=== PATIENT | female | born 2000 | race Caucasian/White ===

== ENCOUNTER → 2019-11-04 | Outpatient (CLI) | payer OTHER ==
--- NOTE | 2019-11-04 10:25 | REP ---
Two-view chest: 11/04/2019. Indication: Cough. Comparison: None. Findings: The lungs are clear. There is no pleural effusion or pneumothorax. The cardiomediastinal silhouette is unremarkable. Impression: No acute cardiopulmonary process. Electronically Signed by Arden Agarwal DO 11/04/2019 10:16 A
== END ==
LOC: M LRY 09:51
PROVIDERS: ATTEND Physician Assistant
DX: R05 Cough (principal)
CPT/HCPCS: 71046; G0463

== ENCOUNTER → 2020-03-23 | Outpatient (CLI) | payer OTHER ==
--- NOTE | 2020-03-23 15:36 | REP ---
REASON FOR EXAM: Pain after trauma yesterday. FINDINGS: The joint spaces are symmetric and relatively well maintained. There is no evidence of acute fracture or destructive osseous lesion. IMPRESSION: Negative. Electronically Signed by Joseluis Simms DO 03/23/2020 04:09 P
== END ==
LOC: M LRY 13:13
PROVIDERS: ATTEND Nurse Practitioner Family
DX: S69.91XA Unspecified injury of right wrist, hand and finger(s), initial encounter (principal); X58.XXXA Exposure to other specified factors, initial encounter; Y92.9 Unspecified place or not applicable

== ENCOUNTER → 2020-04-15 | Outpatient (REF) | payer OTHER | LOC: M SFHCLERA 09:54 | PROVIDERS: ATTEND Physician Assistant | DX: R50.9 Fever, unspecified (principal) ==

== ENCOUNTER → 2020-04-18 | Outpatient (REF) | payer OTHER ==
[2020-04-18 13:22] LABS: HEPATITIS A ANTIBODY IGM NEGATIVE (NEGATIVE); HEPATITIS B CORE ANTIBODY IGM NEGATIVE (NEGATIVE); HEPATITIS B SURFACE ANTIGEN NEGATIVE (NEGATIVE); HEPATITIS C VIRUS ABY INDEX 0.3 INDEX (<0.8); HIV 1&2 SCREEN CENTAUR NEGATIVE (NEGATIVE)
[2020-04-18 14:06] LABS: CHLAMYDIA DNA AMPLIFICATION NEGATIVE (NEGATIVE); GC DNA AMPLIFICATION NEGATIVE (NEGATIVE)
== END ==
LOC: M SFHCLERA 10:01
PROVIDERS: ATTEND Nurse Practitioner Family
DX: Z11.3 Encounter for screening for infections with a predominantly sexual mode of transmission (principal)

== ENCOUNTER 2020-09-01 11:41 | Emergency (ER) | payer OTHER ==
[~2020-09-01] VITALS: Ht 160 cm; Wt 85.8 kg
[2020-09-01] MEDS ORDERED: prenatal PO (11:53)
[2020-09-01] MEDS ORDERED: ZYRTTAB8 PO (11:53)
[2020-09-01] MEDS ORDERED: VENTAER INH (11:53)
[2020-09-01] MEDS ORDERED: ACETAMINOPHEN 325 MG TAB As Ordered ONE (12:17)
[2020-09-01 12:22] LABS: AMORPHOUS SEDIMENT SMALL (NEGATIVE); APPEARANCE, URINE HAZY (CLEAR); BACTERIA, URINE AUTO 1+ (NEGATIVE); BILIRUBIN, URINE AUTO NEGATIVE (NEGATIVE); BLOOD, URINE BLOOD NEGATIVE (NEGATIVE); COLOR, URINE YELLOW (YELLOW); GLUCOSE, URINE (UA) AUTO NEGATIVE (NEGATIVE); KETONE, URINE AUTO 1+ mg/dL (NEGATIVE); LEUKOCYTE ESTERASE, URINE AUTO NEGATIVE (NEGATIVE); MUCUS, URINE SMALL (NEGATIVE); NITRITE, URINE AUTO NEGATIVE (NEGATIVE); PROTEIN, URINE AUTO 2+ mg/dL (NEGATIVE); RBC, URINE AUTO 2 /HPF (0-3); SPECIFIC GRAVITY URINE AUTO 1.025 (1.002-1.035); SQUAMOUS EPITHELIAL CELL UR AU 5 /HPF (0-6); WBC, URINE AUTO 1 /HPF (0-3)
[2020-09-01] MEDS ORDERED: ACETAMINOPHEN 325 MG TAB PO ONE (12:30)
[2020-09-01 13:35] VITALS: BP 122/71
--- NOTE | 2020-09-02 08:37 | REP ---
INDICATION: fal kat shower, pelvic cramping COMPARISON: None. TECHNIQUE: Transabdominal and transvaginal 1st trimester obstetrical ultrasound with color Doppler evaluation as necessary. FINDINGS: Anteverted uterus measures 7.5 x 3.8 x 4.5 cm. No significant decidual reaction is appreciated and no intrauterine is identified Bilateral ovaries are normal in appearance and vascularity without evidence for torsion. Right ovary measures 2.4 x 1.7 x 1.9 cm (RI 0.63). Left ovary measures 4.5 x 2.7 x 3.3 cm (RI 0.47) and includes 2.5 cm cyst. No pelvic fluid or adnexal mass lesion identified. IMPRESSION: 1. No evidence for intrauterine . 2. No pelvic free fluid or adnexal mass lesion. Differential diagnosis includes early , recent spontaneous , and much less likely ectopic . Correlation with serial HCG levels recommended. <Electronically signed by Wilver Randhawa > 09/02/20 [id number]
== END 2020-09-01 13:56 | disposition home or self-care (01) ==
LOC: M ED 11:41
DX: O9A.211 Injury, poisoning and certain other consequences of external causes complicating pregnancy, first trimester (principal); R10.2 Pelvic and perineal pain; O36.80X0 Pregnancy with inconclusive fetal viability, not applicable or unspecified; W18.2XXA Fall in (into) shower or empty bathtub, initial encounter; Y92.009 Unspecified place in unspecified non-institutional (private) residence as the place of occurrence of the external cause; Y93.9 Activity, unspecified; Y99.9 Unspecified external cause status; Z3A.00 Weeks of gestation of pregnancy not specified

== ENCOUNTER 2020-09-17 21:21 | Emergency (ER) | payer OTHER ==
[~2020-09-17] VITALS: Ht 160 cm; Wt 85.7 kg
[~2020-09-17 21:21] MED LIST: VENTAER INH; ZYRTTAB8 PO; prenatal PO
[2020-09-17] MEDS ORDERED: UNIS25TA3 PO (21:29)
[2020-09-17] MEDS ORDERED: PYRI50TA8 PO (21:32)
[2020-09-17] MEDS ORDERED: METOCLOPRAMIDE 10 MG TAB PO ONE (21:45)
[2020-09-17] MEDS ORDERED: REGL10TA6 PO (22:28)
[2020-09-17 22:34] VITALS: BP 133/80
== END 2020-09-17 22:36 | disposition home or self-care (01) ==
LOC: M ED 21:21
DX: O21.0 Mild hyperemesis gravidarum (principal); Z3A.00 Weeks of gestation of pregnancy not specified; O99.511 Diseases of the respiratory system complicating pregnancy, first trimester; J45.909 Unspecified asthma, uncomplicated

== ENCOUNTER 2020-09-29 07:37 | Emergency (ER) | payer OTHER ==
[~2020-09-29] VITALS: Ht 160 cm; Wt 85.4 kg
[~2020-09-29 07:37] MED LIST changes: +PYRI50TA8 PO; +REGL10TA6 PO; +UNIS25TA3 PO
[2020-09-29] MEDS ORDERED: NS 1,000 ML IV ONE (08:15)
[2020-09-29] MEDS ORDERED: ONDANSETRON 4MG/2ML VIAL IV ONE (08:15)
[2020-09-29 08:28] LABS: BASO # 0.1 10^3/uL (0.0-0.2); BASO % 0.5 % (0.0-1.0); EOS # 0.2 10^3/uL (0.0-0.5); HEMATOCRIT 37.8 % (36.0-47.0); HEMOGLOBIN 12.6 g/dl (12.0-15.5); LYMPH # 2.2 10^3/uL (1.5-5.0); LYMPH % 20.4 % (24.0-44.0); MEAN CORPUSCULAR HGB CONC 33.3 g/dl (32.0-36.5); MEAN CORPUSCULAR VOLUME 86.9 fl (80.0-96.0); MONO # 0.4 10^3/uL (0.0-0.8); MONO % 4.1 % (0.0-5.0); NEUTROPHILS # 7.8 10^3/uL (1.5-8.5); NEUTROPHILS % 72.6 % (36.0-66.0); PLATELET COUNT, AUTOMATED 299 10^3/uL (150-450); RED BLOOD COUNT 4.35 10^6/uL (4.00-5.40); WHITE BLOOD COUNT 10.7 10^3/uL (4.0-10.0)
--- NOTE | 2020-09-29 08:56 | REP ---
INDICATION: lower abd ttp, n/v, 8 weeks. COMPARISON: 09/01/2020. FINDINGS: Once again, note is made of an intrauterine gestational sac. Within the gestational sac there is echogenic material consistent with a pole the mean crown-rump length measurement of which is consistent with an 8 week 4 day gestational age. Based on that the LEILANI is 05/07/2021. There is no chorionic or subchorionic abnormality. There is a probable 2.4 cm sized corpus luteum cyst on the left. Doppler interrogation of the heart is a heart rate of 169 beats per minute. IMPRESSION: Early OB ultrasound as described above. <Electronically signed by Joseluis Simms > 09/29/20 [id number]
[2020-09-29 09:03] LABS: ALBUMIN 3.8 GM/DL (3.2-5.2); ALT/SGPT 23 U/L (12-78); BILIRUBIN,DIRECT < 0.1 MG/DL (0.0-0.2); BILIRUBIN,TOTAL 0.2 MG/DL (0.2-1.0); BLOOD UREA NITROGEN 8 MG/DL (7-18); CALCIUM LEVEL 9.1 MG/DL (8.5-10.1); CARBON DIOXIDE LEVEL 21 MEQ/L (21-32); CHLORIDE LEVEL 106 MEQ/L (98-107); CREATININE FOR GFR 0.58 MG/DL (0.55-1.30); GLOMERULAR FILTRATION RATE > 60.0 (>60); GLUCOSE, FASTING 86 MG/DL (70-100); HCG, SERUM QUANTITATIVE 65014 MIU/ML; LIPASE 65 U/L (73-393); POTASSIUM SERUM 3.8 MEQ/L (3.5-5.1); SODIUM LEVEL 138 MEQ/L (136-145); TOTAL PROTEIN 7.6 GM/DL (6.4-8.2)
[2020-09-29 10:02] VITALS: BP 146/71
[2020-09-29] MEDS ORDERED: ONDA4TAB6 PO (10:03)
== END 2020-09-29 10:18 | disposition home or self-care (01) ==
LOC: M ED 07:37
DX: O21.8 Other vomiting complicating pregnancy (principal); Z3A.08 8 weeks gestation of pregnancy; O99.511 Diseases of the respiratory system complicating pregnancy, first trimester; J45.909 Unspecified asthma, uncomplicated; O26.891 Other specified pregnancy related conditions, first trimester; M54.5 Low back pain; Z79.899 Other long term (current) drug therapy; Z86.19 Personal history of other infectious and parasitic diseases
CPT/HCPCS: 76801; 80048; 80076; 81001; 83690; 84702; 85025; 96361; 96374; 99284; J2405

== ENCOUNTER 2021-01-30 11:25 | Outpatient (CLI) | payer OTHER ==
[~2021-01-30] VITALS: Ht 160 cm; Wt 88.0 kg
[~2021-01-30 11:25] MED LIST changes: +ONDA4TAB6 PO
[2021-01-30 11:42] VITALS: BP 120/59
[2021-01-30] MEDS ORDERED: FLUCONAZOLE 50MG TABLET PO ONE (12:20)
--- NOTE | 2021-01-30 12:23 | IPNPDOC ---
Obstetrical Progress Note Date of Service Jan 30, 2021 Subjective Ms. Dougherty is a 20yo at 26+1 presenting for cramps since 0700 this morning. She denied VB, LOF, decreased FM, contractions. She denied n/v/d, cp, sob, kerns, visual changes, f/c, vaginal dc, urinary sx. Assessment Heart Rate (FHR): 140 Variability: Moderate Accelerations: Positive Decelerations: None Heart Rate Tracing: Other (apparopirate for gestational age) Tocometer Contractions: No Sterile Vaginal Examination Dilation: None Station: -3 Cervical Consistency: Firm Cervical Position: Posterior Postion/Presentation: Cephalic presentation Assessment and Plan Additional Comments Ms. Dougherty is a 20yo at 26+1 presenting for cramps since 0700 this morning. VS normal. NST appropriate for gestational age. No contractions on toco. Exam with small amount of white discharge, cervix visually closed and c/T/H on exam. CL 3.6cm and no funneling or changes with valsalva. Baby was cephalic and +FM was noted. LYNN/WP was positive for budding yeast. G/C/UA pending. PTL is unlikely at this time. - will call with abnormal G/C/UA - fluconazole given for vaginal candidiasis - educated on hydration - return precautions given for PTL - routine OB return precautions given - patient to follow up at next BRITTNEY Medina DO Jan 30, 2021 12:23
[2021-01-30 12:39] VITALS: BP 110/53
[2021-01-30 12:49] LABS: APPEARANCE, URINE CLEAR (CLEAR); BACTERIA, URINE AUTO NEGATIVE (NEGATIVE); BILIRUBIN, URINE AUTO NEGATIVE (NEGATIVE); BLOOD, URINE BLOOD NEGATIVE (NEGATIVE); COLOR, URINE YELLOW (YELLOW); GLUCOSE, URINE (UA) AUTO NEGATIVE (NEGATIVE); KETONE, URINE AUTO NEGATIVE (NEGATIVE); LEUKOCYTE ESTERASE, URINE AUTO NEGATIVE (NEGATIVE); MUCUS, URINE SMALL (NEGATIVE); NITRITE, URINE AUTO NEGATIVE (NEGATIVE); PROTEIN, URINE AUTO NEGATIVE (NEGATIVE); RBC, URINE AUTO 1 /HPF (0-3); SQUAMOUS EPITHELIAL CELL UR AU 1 /HPF (0-6); UROBILINOGEN, URINE AUTO 0.2 mg/dL (0.0-2.0); WBC, URINE AUTO 1 /HPF (0-3)
== END 2021-01-30 12:47 | disposition home or self-care (01) ==
LOC: M LDO 11:25
PROVIDERS: ATTEND Obstetrics & Gynecology
DX: O26.892 Other specified pregnancy related conditions, second trimester (principal); B37.3 Candidiasis of vulva and vagina; Z3A.26 26 weeks gestation of pregnancy
CPT/HCPCS: 81001; 87086; 87490; 87590; 87661; G0378; G0463

== ENCOUNTER 2021-04-17 15:10 | Inpatient (IN) | payer OTHER ==
[2021-04-17] VITALS (9 sets, daily range): BP systolic 115–142; BP diastolic 59–91
[~2021-04-17] VITALS: Ht 160 cm; Wt 97.3 kg
[2021-04-17] MEDS ORDERED: VALT500T PO (15:31)
[2021-04-17] MEDS ORDERED: ADVA230A (15:31)
[2021-04-17 15:56] LABS: HEMATOCRIT 34.5 % (36.0-47.0); HEMOGLOBIN 11.3 g/dl (12.0-15.5); MEAN CORPUSCULAR HEMOGLOBIN 29.7 pg (27.0-33.0); MEAN CORPUSCULAR HGB CONC 32.8 g/dl (32.0-36.5); MEAN CORPUSCULAR VOLUME 90.6 fl (80.0-96.0); PLATELET COUNT, AUTOMATED 199 10^3/uL (150-450); RED BLOOD COUNT 3.81 10^6/uL (4.00-5.40); WHITE BLOOD COUNT 12.7 10^3/uL (4.0-10.0)
[2021-04-17 15:57] LABS: APPEARANCE, URINE HAZY (CLEAR); BACTERIA, URINE AUTO NEGATIVE (NEGATIVE); BILIRUBIN, URINE AUTO NEGATIVE (NEGATIVE); BLOOD, URINE BLOOD NEGATIVE (NEGATIVE); CALCIUM OXALATE CRYSTALS SMALL; COLOR, URINE YELLOW (YELLOW); GLUCOSE, URINE (UA) AUTO NEGATIVE (NEGATIVE); KETONE, URINE AUTO NEGATIVE (NEGATIVE); LEUKOCYTE ESTERASE, URINE AUTO NEGATIVE (NEGATIVE); MUCUS, URINE LARGE (NEGATIVE); NITRITE, URINE AUTO NEGATIVE (NEGATIVE); PROTEIN, URINE AUTO 1+ mg/dL (NEGATIVE); RBC, URINE AUTO 2 /HPF (0-3); SQUAMOUS EPITHELIAL CELL UR AU 4 /HPF (0-6); WBC, URINE AUTO 4 /HPF (0-3)
[2021-04-17 16:19] LABS: ALBUMIN 2.7 GM/DL (3.2-5.2); ALT/SGPT 16 U/L (12-78); BILIRUBIN,DIRECT < 0.1 MG/DL (0.0-0.2); BILIRUBIN,TOTAL 0.2 MG/DL (0.2-1.0); TOTAL PROTEIN 6.2 GM/DL (6.4-8.2)
[2021-04-17 16:28] LABS: TOTAL PROTEIN,RANDOM URINE 22.1 MG/DL (0.0-12.0)
[2021-04-17] MEDS ORDERED: TRANEXAMIC ACID INJection 1,000 MG in NS 100 ML IV PRN (17:25)
[2021-04-17] MEDS ORDERED: CARBOPROST TROMETHAMINE 250 MCG/ML AMP IM PRN (17:25)
[2021-04-17] MEDS ORDERED: OXYTOCIN DRIP 30 UNITS in IV 1 EA IV PRN (17:25)
[2021-04-17] MEDS: LR 1,000 ML IV SCH (18:15)
--- NOTE | 2021-04-17 18:50 | HPEPDOC ---
Obstetrical History & Physical General Date of Admission Apr 17, 2021 at 17:00 History of Present Illness Mrs. José Juarez is a 20yo G1 at 37w1d ega, by LMP c/w 1st trimester ultrasound, with PNC c/b Asthma, Obesity, HSV 1+2, Obstructive Sleep Apnea, & Varicella Non-Immune who presents for IOL after being diagnosed with gHTN today. This evening, Mrs. Juarez denies CTXs, LOF, and VB. +FM. She also denies prodromal symptoms. Chief Complaint: Induction of labor Information Provided By: Patient Age: 21 : 1 Care Care: Good Care Number of Visits: 9 Dating Final EDC: May 07, 2021 Final EDC for Daily Update: May 07, 2021 Final EDC by: LMP, 1st trimester (US) LMP: Jul 31, 2020 Estimated Date of Confinement: May 07, 2021 EGA at Admission: 37 Antepartum Course Height (inches): 63 Pre- weight (lbs.): 185.2 Admission Weight (lbs.): 215 Change in Weight (lbs.): 29.8 Past Medical History Past Obstetrical History : Past Obstetrical History: [employer] History: Herpes simplex virus(HSV) Past Medical History Medical History Moderate Persistent Asthma Obesity HSV 1 & 2 (by labs; no h/o an outbreak) Possible Obstructive Sleep Apnea Varicella Non-Immune Surgical History: [place] teeth, Other Family History Significant Family History: No pertinent family hx Social History Marital Status: Family situation: Spouse/partner home Psychosocial History: No pertinent psych hx * Smoker: non-smoker Alcohol: Denies Drugs: denies Abuse Violence Screening Have you been hit/kicked/slapp: No Have you been sexually assault: No Imunizations Tdap status: current Influenza Status: current Allergies Coded Allergies: No Known Allergies (Unverified , 09/01/20) Medications Scheduled Valacyclovir HCl (Valtrex) 500 Mg Tablet, 500 MG PO BID [ ] , 1 TAB PO DAILY Scheduled PRN Albuterol Sulfate (Ventolin Hfa) 18 Gm Hfa.aer.ad, 2 PUFF INH Q4-6HP PRN for wheezing Miscellaneous Medications Fluticasone Propion/Salmeterol (Advair Hfa 230-21 Mcg Inhaler) 12 Gm Hfa.aer.ad Physical Examination Physical Examination GENERAL: Alert and oriented times three. ABDOMEN: Gravid and non-tender to touch. FETUS: Is vertex (VTX) by sterile vaginal examination (SVE). HEART RATE: Regular rate and rhythm. LUNGS: Clear to auscultation (CTA). EXTREMITIES: No edema. SSE: No e/o of vesicular lesions on the labia, vagina, or cervix Vital Signs/I&O Vital Signs Date Time Temp Pulse Resp B/P (MAP) Pulse Ox O2 Delivery O2 Flow Rate FiO2 04/17/21 15:27 98.0 80 18 134/71 (92) 99 Laboratory Data 24H LABS Laboratory Tests 2 04/17/21 15:39: Nucleated Red Blood Cells % (auto) 0.0, Total Bilirubin 0.2, Direct Bilirubin < 0.1, Aspartate Amino Transf (AST/SGOT) 15, Alanine Aminotransferase (ALT/SGPT) 16, Alkaline Phosphatase 101, Total Protein 6.2L, Albumin 2.7L, Albumin/Globulin Ratio 0.8L 04/17/21 15:40: Urine Color YELLOW, Urine Appearance HAZY, Urine pH 5.0, Urine Specific [place] 1.030, Urine Protein 1+H, Urine Glucose (Auto)(UA) NEGATIVE, Urine Ketones (Auto) NEGATIVE, Urine Blood NEGATIVE, Urine Nitrite NEGATIVE, Urine Bilirubin NEGATIVE, Urine Urobilinogen 2.0H, Urine Leukocyte Esterase (Auto) NEGATIVE, Urine WBC (Auto) 4H, Urine RBC (Auto) 2, Urine Hyaline Casts (Auto) 0, Urine Bacteria (Auto) NEGATIVE, Urine Squamous Epithelial Cells 4, Urine Calcium Oxalate Cryst (Auto) SMALL, Urine Mucus (Auto) LARGE, Urine Sperm (Auto) , Urine Random Creatinine 311.0, Urine Random Total Protein 22.1H 04/17/21 17:23: Serology Scanned Report Hepatitis B Testing CBC/BMP Laboratory Tests 04/17/21 15:39 Pertinent Laboratoy Data Blood Type: O+ RBC Antibody Screen: Negative HIV: Negative Hepatitis B: Negative Hepatitis C: Negative Rapid Plasma Reagin: Nonreactive Rubella: Immune Varicella: Nonreactive Chlamydia/Gonorrhea: Negative Group B Streptococcus: Negative Quad Screen Test: Negative Glucose Tolerance Test: 117 Anatomy Ultrasound Placenta Location: Anterior Normal Anatomy: Yes Placenta Previa: No Estimated Weight (grams): 3500 Steroid Therapy Steroid Therapy: No Vaginal Examination Dilation: 1cm Effacement: 30% Station: -3 Cervical Consistency: Medium Cervical Position: Posterior Presentation: Cephalic presentation Position: Vertex (occiput) Assessment Heart Rate (FHR): 130 Variability: Moderate Accelerations: Positive Decelerations: None Tocometer Contractions: No Assessment/Plan Assessment Mrs. José Juarez is a 21-year-old 1 at 37w1d, by LMP c/w 1st trimester week ultrasound, who presents for an IOL after being diagnosed with gHTN. Plan Admit and orient. Project Management Intern and consent. Diet: Regular dinner then Clear Liquid diet. Group B Streptococcus (GBS) negative. Labs and intravenous (IV) per unit protocol. Counseled on Pitocin and induction of labor (IOL). - Villalba balloon (80cc/80cc) placed at 18:00 Lactated Ringers (LR): at 125mL/hr. Anticipate normal spontaneous delivery (). C-S as appropriate. MAYI DAVIS M.D. Apr 17, 2021 18:49
[2021-04-17] MEDS ORDERED: BUTORPHANOL 2 MG/ML INJ (J0595) IV ONE (21:00)
[2021-04-17] MEDS ORDERED: PROMETHAZINE INJ 25 MG/ML VIAL (J2550) IV ONE (21:00)
--- NOTE | 2021-04-17 21:55 | IPNPDOC ---
Obstetrical Progress Note Date of Service Apr 17, 2021 Subjective Mrs. José Juarez is a 20yo G1 at 37w1d ega, by LMP c/w 1st trimester ultrasound, with PNC c/b Asthma, Obesity, HSV 1+2, Obstructive Sleep Apnea, & Varicella Non-Immune who is undergoing an IOL for gHTN. Cook Ga balloon (80cc/80cc) was placed at 18:00. Patient with increasingly worsening irregular CTXs. She still denies headaches, RUQ pain, and scotomata. Objective Vital Signs Date Time Temp Pulse Resp B/P (MAP) Pulse Ox O2 Delivery O2 Flow Rate FiO2 04/17/21 21:46 16 04/17/21 18:53 75 126/60 (82) 04/17/21 18:10 98.6 04/17/21 15:27 99 Assessment Heart Rate (FHR): 130 Variability: Moderate Accelerations: Positive Decelerations: None Heart Rate Tracing: Category I Tocometer Contractions: Yes Frequency: irregular Assessment and Plan Age: 20 : 1 EGA at Admission: 37 Weeks & Days 37w1d ega Status: Reassuring Group B Streptococcus: Negative Anticipate: Vaginal Delivery Additional Comments - Continue to monitor the FHT & contractions - Will repeat SVE when the Cook ga bulb is expelled - Stadol 20mg iv & Phenergan 25mg iv for pain relief. - All questions answered Flaquito Hardy., Ph.D. [employer] PROGRAM TEACHER Staff Physician MAYI DAVIS M.D. Apr 17, 2021 21:55
[2021-04-18] VITALS (41 sets, daily range): BP systolic 114–155; BP diastolic 55–98
--- NOTE | 2021-04-18 06:19 | IPNPDOC ---
Obstetrical Progress Note Date of Service Apr 18, 2021 Subjective Mrs. José Juarez is a 20yo G1 at 37w2d ega, by LMP c/w 1st trimester ultrasound, with PNC c/b Asthma, Obesity, HSV 1+2, Obstructive Sleep Apnea, & Varicella Non-Immune who is undergoing an IOL for gHTN. Cook Villalba balloon (80cc/80cc) was placed on 17 Apr 2021 at 18:00. Patient was given Stadol 2mg + Phenergan 25mg iv yesterday evening secondary to worsening CTXs. She currently denies headaches, RUQ pain, and scotomata. Objective Vital Signs Date Time Temp Pulse Resp B/P (MAP) Pulse Ox O2 Delivery O2 Flow Rate FiO2 04/18/21 05:33 98.9 82 16 123/69 (87) 04/17/21 15:27 99 Assessment Heart Rate (FHR): 140 Variability: Moderate Accelerations: Positive Decelerations: None Heart Rate Tracing: Category I Tocometer Contractions: Yes Frequency: irregular Sterile Vaginal Examination Dilation: 3 cm Effacement (%): 50% Station: -3 Cervical Consistency: Medium Cervical Position: Posterior Postion/Presentation: Cephalic presentation Assessment and Plan Age: 20 : 1 EGA at Admission: 37 Weeks & Days 37w2d Status: Reassuring Group B Streptococcus: Negative Anticipate: Vaginal Delivery Additional Comments - Will removed the Cook Double Balloon Catheter now (s/p 12-hours) - Cytotec 50mcg PO x1 now - Continue to monitor the FHT - Will repeat SVE in 4-hours - Anticipate Flaquito Hardy., Ph.D. [employer] SUPERVISOR Staff Physician MAYI DAVIS M.D. Apr 18, 2021 06:19
[2021-04-18] MEDS ORDERED: miSOPROStol 25MCG 1/4 TABLET PV ONE (06:20)
[2021-04-18] MEDS ORDERED: miSOPROStol 50MCG 1/2 TABLET PV ONE (06:20)
[2021-04-18] MEDS ORDERED: miSOPROStol 50MCG 1/2 TABLET PO ONE (06:35)
--- NOTE | 2021-04-18 07:55 | IPNPDOC ---
Obstetrical Progress Note Date of Service Apr 18, 2021 Subjective 20 yo at 37w2d with LEILANI of 07 MAY 2021 admitted for IOL for gHTN. She has had a cook catheter balloon that was removed and was given 1 dose of cytotec at 0643 this morning. She is feeling well without any complaints at this time. She denies headache, chest pain, RUQ pain, and visual changes at this time. She has received 1 dose of stadol and phenergan last night for pain. She has supportive family at the bedside. Objective Vital Signs Date Time Temp Pulse Resp B/P (MAP) Pulse Ox O2 Delivery O2 Flow Rate FiO2 04/18/21 05:33 98.9 82 16 123/69 (87) 04/17/21 15:27 99 Assessment Heart Rate (FHR): 145 Variability: Minimal Accelerations: None Decelerations: None Tocometer Contractions: No Duration: other (uterine irritability noted) Assessment and Plan Age: 20 : 1 Term: 0 Pre-term: 0 Abortions: 0 Livin EGA at Admission: 37 (+1) Weeks & Days 37w2d Status: Reassuring Group B Streptococcus: Negative Anticipate: Vaginal Delivery Additional Comments Plan to recheck cervical exam around 1030. Consider another dose of cytotec versus starting pitocin after next cervical exam ALFONSO WADSWORTH CNM Apr 18, 2021 07:55
[2021-04-18] MEDS: LR 1,000 ML IV SCH ×3 (10:36→18:20)
[2021-04-18] MEDS ORDERED: LR 1,000 ML IV SCH (10:40)
[2021-04-18] MEDS ORDERED: OXYTOCIN DRIP 30 UNITS in IV 1 EA IV SCH (10:40)
--- NOTE | 2021-04-18 10:44 | IPNPDOC ---
Obstetrical Progress Note Date of Service Apr 18, 2021 Subjective 20 yo at 37w2d admitted for IOL for GHTN. She is breathing through her contractions. She denies headache, chest pain, RUQ pain, and visual changes. She has supportive family at this time. Objective Vital Signs Date Time Temp Pulse Resp B/P (MAP) Pulse Ox O2 Delivery O2 Flow Rate FiO2 04/18/21 05:33 98.9 82 16 123/69 (87) 04/17/21 15:27 99 Assessment Heart Rate (FHR): 145 Variability: Moderate Accelerations: Present Decelerations: None Tocometer Contractions: Yes Frequency: irregular Sterile Vaginal Examination Dilation: 5 cm Effacement (%): 80% Station: -3 Cervical Consistency: Soft Cervical Position: Posterior Postion/Presentation: Cephalic presentation Assessment and Plan Age: 20 : 1 Term: 0 Pre-term: 0 Abortions: 0 Livin Weeks & Days 37w2d Status: Reassuring Group B Streptococcus: Negative Anticipate: Vaginal Delivery Additional Comments Will start ALFONSO Anthony CNM Apr 18, 2021 10:44
[2021-04-18 11:35] LABS: HEMATOCRIT 32.9 % (36.0-47.0); HEMOGLOBIN 10.9 g/dl (12.0-15.5); MEAN CORPUSCULAR HEMOGLOBIN 30.2 pg (27.0-33.0); MEAN CORPUSCULAR HGB CONC 33.1 g/dl (32.0-36.5); MEAN CORPUSCULAR VOLUME 91.1 fl (80.0-96.0); PLATELET COUNT, AUTOMATED 185 10^3/uL (150-450); RED BLOOD COUNT 3.61 10^6/uL (4.00-5.40); WHITE BLOOD COUNT 14.5 10^3/uL (4.0-10.0)
--- NOTE | 2021-04-18 13:11 | IPNPDOC ---
Obstetrical Progress Note Date of Service Apr 18, 2021 Subjective 20 yo at 37w2d admitted for IOL for GHTN. She is working and breathing through her contractions. She has supportive family at the bedside. She denies headache, chest pain, RUQ pain, and visual changes. Objective Vital Signs Date Time Temp Pulse Resp B/P (MAP) Pulse Ox O2 Delivery O2 Flow Rate FiO2 04/18/21 11:07 73 16 116/55 (75) 04/18/21 10:26 98.6 04/17/21 15:27 99 Pitocin at 8 mu/min AROM for clear fluid Assessment Heart Rate (FHR): 145 Variability: Moderate Accelerations: Present Decelerations: Early, Variable Tocometer Contractions: Yes Frequency: other (every 3-5 minutes) Sterile Vaginal Examination Dilation: 6 cm Effacement (%): 80% Station: -2 Postion/Presentation: Cephalic presentation Assessment and Plan Age: 20 : 1 Term: 0 Pre-term: 0 Abortions: 0 Livin Weeks & Days 37w2d Status: Reassuring Group B Streptococcus: Negative Anticipate: Vaginal Delivery ALFONSO WADSWORTH CNM Apr 18, 2021 13:11
[2021-04-18] MEDS ORDERED: hydrOXYzine 50 MG TAB PO ONE (15:45)
[2021-04-18] MEDS ORDERED: FENTANYL 2MCG/ML ROPIVACAINE 0.2% IN 0.9% NACL 100ML IVBAG As Ordered ONE (15:51)
[2021-04-18] MEDS ORDERED: ePHEDrine SULFATE 25 MG/5 ML(5MG/ML) SYRINGE IV PRN (16:10)
[2021-04-18] MEDS ORDERED: ONDANSETRON 4MG/2ML VIAL IV PRN (16:10)
[2021-04-18] MEDS ORDERED: LACTATED RINGER'S 1000 ML IV PRN (16:10)
[2021-04-18] MEDS ORDERED: diphenhydrAMINE 50MG/ML VIAL (J1200) IV PRN (16:10)
[2021-04-18] MEDS ORDERED: REFRIGERATOR IV KEYS XX PRN (16:10)
[2021-04-18] MEDS ORDERED: FENTANYL/ROPIVACAINE/NACL BAG 100 ML EPIDURAL SCH (16:10)
[2021-04-18] MEDS ORDERED: EPIDURAL COMMENT XX SCH (16:10)
[2021-04-18] MEDS ORDERED: NALOXONE INJ 0.4MG/1ML VIAL (J2310 PER 1MG) IV PRN (16:10)
[2021-04-18] MEDS ORDERED: EPIDURAL/PCA KEYS XX PRN (16:10)
--- NOTE | 2021-04-18 18:38 | IPNPDOC ---
Text Note Date of Service The patient was seen on 04/18/21. NOTE Accepting care of José this evening. She's a 20 yo at 37+2 weeks gest ation who was admitted for an IOL yesterday for GHTN. Toxemia labs are normal. She progressed with a cook balloon, cytotec, pitocin and then AROM at ~1300 today. She recently received an epidural and is very comfortable. Cervix: C/C/0 FHR tracing - Cat II with moderate variability, +accels, +early and sporadic variable decels. Overall reassuring. Ctx regular. José is progressing well. Pitocin currently at 8mU. Will allow for period of passive descent and then begin pushing. All patient questions answered. Bernard VS,Bartolo, I+O VS, Bartolo, I+O Laboratory Tests 04/18/21 11:01 Vital Signs Date Time Temp Pulse Resp B/P (MAP) Pulse Ox O2 Delivery O2 Flow Rate FiO2 04/18/21 17:25 76 16 134/77 (96) 04/18/21 15:38 98.7 04/17/21 15:27 99 I&O- Last 24 Hours up to 6 AM 04/18/21 06:00 Intake Total 74.6 ml Balance 74.6 ml AKHIL FAY DO Apr 18, 2021 18:38
[2021-04-18] MEDS ORDERED: PROMETHAZINE 25 MG TAB PO PRN (20:05)
[2021-04-18] MEDS ORDERED: MEASLES,MUMPS,RUBELLA VACCINE INJ (MMR-II) (90707) SC SCH (20:05)
[2021-04-18] MEDS ORDERED: DOCUSATE SODIUM 100MG CAPSULE PO PRN (20:05)
[2021-04-18] MEDS ORDERED: IBUPROFEN 600MG TAB PO PRN (20:05)
[2021-04-18] MEDS ORDERED: DIBUCAINE 1% OINTMENT 30GM TOP PRN (20:05)
[2021-04-18] MEDS ORDERED: RHOGAM 300 MCG (1500 IU) INJ (J2790) IM SCH (20:05)
[2021-04-18] MEDS ORDERED: ACETAMINOPHEN 500 MG TAB PO PRN (20:05)
[2021-04-18] MEDS ORDERED: ACETAMINOPHEN TAB 650MG DOSE (2X325MG) PO PRN (20:05)
--- NOTE | 2021-04-18 20:08 | DNPDOC ---
[facility] Delivery Note Delivery Note DATE OF DELIVERY: 18Apr2021 at ~1940 PREDELIVERY DIAGNOSIS: 37+2 weeks gestation and IOL for GHTN POST DELIVERY DIAGNOSIS: Delivered. PROCEDURE: Spontaneous vaginal delivery OCULAR CARE AIDE: Dr. Wagner ANESTHESIA: Epidural ESTIMATED BLOOD LOSS: 200 FINDINGS: 6 pound 5 ounce female infant, Score 9/9 DELIVERY SUMMARY: José progressed steadily after pitocin augmentation and AROM to C/C/+2. She had a strong urge to push. The bed was broken down and she was prepped for delivery. With excellent effort over about only 20 minutes her baby delivered. Presentation was SHERI with restitution to ROT. The left anterior shoulder delivered with gentle traction followed easily by the remainder of the body. The was dried and stimulated on the field and a bulb suction was used. The was placed on the maternal abdomen and cried vigorously. The three vessel umbilical cord was then clamped and cut by the FOB after appropriate time delay and under my direction. Third stage was completed with gentle traction on on the cord and it was productive of an intact placenta. The uterus was firmed with massage and pitocin was administered IV bolus. Inspection of the cervix, vagina, labia, and perineum revealed a midline second degree laceration. This was repaired with 3-0 vicryl suture in the usual fashion. There was excellent cosmesis and hemostasis after the repair. The fundus was palpated again and was firm. Sponge, instrument, and needle counts were correct X2. Mother and stable when I left the room. DO NYA Gilliam CHRISTOPHER J. DO Apr 18, 2021 20:08
[2021-04-19] MEDS: IBUPROFEN 800 MG TAB PO PRN ×2 (03:33→18:14)
[2021-04-19 06:00] VITALS: BP 110/65
--- NOTE | 2021-04-19 06:58 | IPNPDOC ---
Progress Note Date of Service: Apr 19, 2021 Progress Note José is a 20 yo G1 now P1 who is PPD#1 s/p uncomplicated yesterday evening after being admitted for an IOL for GHTN. No acute events overnight. This AM she reports feeling well. She is ambulating, voiding, and tolerating a regular diet without issues. Her lochia is minimal. Pain is well controlled. Vitals - VSS, afebrile, normotensive, non tachycardic General - sitting up in bed, AAOX3, pleasant and conversant, NAD Abdomen - Fundus firm at U-2. No fundal tenderness Extremities - No edema UO - appropriate José is doing well and is making an appropriate recovery. Continue routine care. Anticipate discharge home tomorrow. Bernard VS, I&O, 24H, Bartolo Vital Signs/I&O Vital Signs Date Time Temp Pulse Resp B/P (MAP) Pulse Ox O2 Delivery O2 Flow Rate FiO2 04/19/21 06:00 97.1 84 16 110/65 (80) 96 Room Air I&O- Last 24 Hours up to 6 AM 04/19/21 06:00 Intake Total 4034 ml Output Total 775 ml Balance 3259 ml Laboratory Data 24H LABS Laboratory Tests 2 04/18/21 11:01: Nucleated Red Blood Cells % (auto) 0.0 CBC/BMP Laboratory Tests 04/18/21 11:01 AKHIL FAY DO Apr 19, 2021 06:58
[2021-04-19] MEDS: PRENATAL VITAMINS CHEWABLE TABLET PO SCH (07:51)
[2021-04-19 18:00] VITALS: BP 123/74
[2021-04-20 06:00] VITALS: BP 128/79
--- NOTE | 2021-04-20 07:47 | IPNPDOC ---
Progress Note Date of Service: Apr 20, 2021 Day#: 2 Progress Note SUBJECT: Ms. Juarez is a 20yo PPD2 after a vaginal delivery complicated by a second degree midline laceration. She was induced for gestational hypertension. She has had no signs or symptoms of pre-eclampsia and had normal pre-eclampsia labs. She has been ambulating, voiding spontaneously without issue and tolerating regular diet. Breast feeding without issue. Reports lochia is like a normal period. Patient is ambulating well. [Reports some cramping with . Denies any pain. Voiding and stooling without difficulty. APC 1. gestational hypertension, normal pre-eclampsia labs 2. mild intermittent asthma 3. suspected obstructive sleep apnea 4. varicella non-immune 5. HSV positive on valtrex OBJECTIVE: VITAL SIGNS: Within normal limits, afebrile. Alert and oriented times three. No increased WOB Heart rate: non-tachycardic Abdomen: Fundus firm at U-2. Soft, NTTP. Minimal lochia per patient. ASSESSMENT: Ms. Juarez is a 20yo PPD2 after a vaginal delivery complicated by a second degree midline laceration. She was induced for gestational hypertension. She has had no signs or symptoms of pre-eclampsia and had normal pre-eclampsia labs. Vitals within normal limits, afebrile, hemodynamically stable with no evidence of infection. PLAN: 1. Discharge to home today. 2. Tylenol and Motrin for pain. 3. Encourage breast feeding and ambulation. 4. Desires depo provera for contraception, educated on 3mo efficacy, will give prior to discharge. 5. Routine PP visit in 6 weeks in clinic. 6. Discussed return precautions at length. 7. Recommended varicella vaccination VS, I&O, 24H, Fishbone Vital Signs/I&O Vital Signs Date Time Temp Pulse Resp B/P (MAP) Pulse Ox O2 Delivery O2 Flow Rate FiO2 04/20/21 06:00 97.1 75 17 128/79 (95) 04/19/21 18:00 100 Room Air BRITTNEY HASSAN DO Apr 20, 2021 07:47
--- NOTE | 2021-04-20 07:48 | OBDS ---
[facility] Obstetrical Discharge Sum. Obstetrical Discharge Summary Date: Apr 20, 2021 A/P, Post Course List any complications SUBJECT: Ms. Juarez is a 20yo PPD2 after a vaginal delivery complicated by a second degree midline laceration. She was induced for gestational hypertension. She has had no signs or symptoms of pre-eclampsia and had normal pre-eclampsia labs. She has been ambulating, voiding spontaneously without issue and tolerating regular diet. Breast feeding without issue. Reports lochia is like a normal period. Patient is ambulating well. [Reports some cramping with . Denies any pain. Voiding and stooling without difficulty. Vitals within normal limits, afebrile, hemodynamically stable with no evidence of infection. APC 1. gestational hypertension, normal pre-eclampsia labs 2. mild intermittent asthma 3. suspected obstructive sleep apnea 4. varicella non-immune 5. HSV positive on valtrex PLAN: 1. Discharge to home today. 2. Tylenol and Motrin for pain. 3. Encourage breast feeding and ambulation. 4. Desires depo provera for contraception, educated on 3mo efficacy, will give prior to discharge. 5. Routine PP visit in 6 weeks in clinic. 6. Discussed activity limitations (pelvic rest) and return precautions at length. 7. Recommended varicella vaccination BRITTNEY HASSAN DO Apr 20, 2021 07:48
[2021-04-20] MEDS: PRENATAL VITAMINS CHEWABLE TABLET PO SCH (08:17)
== END 2021-04-20 18:00 | disposition home or self-care (01) | DRG 807 ==
LOC: M LDO 15:10 → M LDI 17:00 → M OBS 04-18 21:45
PROVIDERS: ADMIT Obstetrics & Gynecology Reproductive Endocrinology; ATTEND Registered Nurse
PROC: 3E033VJ Introduction of Other Hormone into Peripheral Vein, Percutaneous Approach (ICD-10-PCS; 2021-04-17)
PROC: 10E0XZZ Delivery of Products of Conception, External Approach (ICD-10-PCS; principal; 2021-04-18)
PROC: 0KQM0ZZ Repair Perineum Muscle, Open Approach (ICD-10-PCS; 2021-04-18)
PROC: 10907ZC Drainage of Amniotic Fluid, Therapeutic from Products of Conception, Via Natural or Artificial Opening (ICD-10-PCS; 2021-04-18)
DX: O13.4 Gestational [pregnancy-induced] hypertension without significant proteinuria, complicating childbirth (principal); Z37.0 Single live birth; Z3A.37 37 weeks gestation of pregnancy; O99.214 Obesity complicating childbirth; E66.9 Obesity, unspecified; O99.52 Diseases of the respiratory system complicating childbirth; J45.909 Unspecified asthma, uncomplicated; O70.1 Second degree perineal laceration during delivery

== ENCOUNTER → 2022-05-22 | Outpatient (CLI) | payer OTHER ==
[~2022-05-22] MED LIST changes: +ADVA230A; +VALT500T PO
== END ==
LOC: M SLEEP 20:00
PROVIDERS: ATTEND Physician Assistant
DX: R06.83 Snoring (principal)